=== PATIENT | female | born 1985 | race Caucasian/White ===

== ENCOUNTER 2021-05-28 18:46 | Inpatient (IN) | payer OTHER ==
[2021-05-28] MEDS ORDERED: guaiFENesin 200 MG/10 ML 10 ML UNIT-DOSE CUPS PO PRN (21:18)
[2021-05-28] MEDS ORDERED: hydrOXYzine PAMOATE 25 MG CAPSULE (FP) PO PRN (21:18)
[2021-05-28] MEDS ORDERED: MAGNESIUM CITRATE 300 ML BOTTLE PO PRN (21:18)
[2021-05-28] MEDS ORDERED: MAG HYDROX/AL HYDROX/SIMETH 30 ML UNIT-DOSE CUP PO PRN (21:18)
[2021-05-28] MEDS ORDERED: LOPERAMIDE HCL 2 MG CAPSULE PO PRN (21:18)
[2021-05-28] MEDS ORDERED: MAGNESIUM HYDROX 2400MG/30ML ORAL SUSPENSION 30 ML CUP PO PRN (21:18)
[2021-05-29 01:04] VITALS: BMI 50.1
[2021-05-29] MEDS ORDERED: TUBERCULIN PPD 5 TU/0.1ML VIAL ID ONE (01:56)
[2021-05-29] MEDS: MELATONIN 5 MG TABLETS PO SCH ×2 (02:35→21:37)
[2021-05-29] MEDS: THIAMINE HCL 100 MG TABLET (FP) PO SCH ×2 (02:35→21:37)
[2021-05-29 10:21] LABS: HEMATOCRIT 35.8 % (32.4-45.2); HEMOGLOBIN 11.7 GM/dL (10.7-15.3); MCH 27.1 pg (25.7-33.7); MCHC 32.7 g/dl (32.0-36.0); MEAN CELL VOLUME 82.9 fl (80-96); MEAN PLT VOLUME 8.5 fl (7.5-11.1); PLATELET COUNT 397 10^3/uL (134-434); RBC 4.31 M/mm3 (3.60-5.2); RDW 15.4 % (11.6-15.6); WHITE BLOOD COUNT 8.8 K/mm3 (4.0-10.0)
[2021-05-29 11:04] LABS: ALBUMIN 3.1 g/dl (3.4-5.0); BLOOD UREA NITROGEN 21.7 mg/dL (7-18); CALCIUM 8.5 mg/dL (8.5-10.1)
[2021-05-29 11:08] LABS: CREATININE 0.7 mg/dL (0.55-1.3)
[2021-05-29 11:09] LABS: BILIRUBIN,TOTAL 0.6 mg/dL (0.2-1); TOT PROT 6.9 g/dl (6.4-8.2)
[2021-05-29 11:30] LABS: SYPHILIS W/ RPR CONF NON-REACTIVE (NONREACTIVE)
[2021-05-29] MEDS: PRENATAL VITAMINS W/ FOLIC ACID TABLET (FP) PO SCH (11:30)
[2021-05-29] MEDS: ESCITALOPRAM OXALATE 10 MG TABLET PO SCH (12:39)
[2021-05-29 12:56] LABS: PH,URINE 5.5 (5.0-8.0); URINE APPEARANCE CLEAR; URINE BILIRUBIN NEGATIVE (NEGATIVE); URINE COLOR YELLOW; URINE GLUCOSE (UA) NEGATIVE (NEGATIVE); URINE KETONE NEGATIVE (NEGATIVE); URINE LEUK ESTERASE NEGATIVE (NEGATIVE); URINE NITRITE NEGATIVE (NEGATIVE); URINE PROTEIN NEGATIVE (NEGATIVE); URINE UROBILINOGEN 0.2 mg/dL (0.2-1.0)
[2021-05-29] MEDS: hydrOXYzine PAMOATE 25 MG CAPSULE (FP) PO PRN (21:38)
[2021-05-29] MEDS: QUEtiapine FUMARATE 50 MG TABLET PO SCH (21:38)
[2021-05-30] MEDS: hydrOXYzine PAMOATE 25 MG CAPSULE (FP) PO PRN ×2 (10:26→17:17)
[2021-05-30] MEDS: PRENATAL VITAMINS W/ FOLIC ACID TABLET (FP) PO SCH (10:26)
[2021-05-30] MEDS: ESCITALOPRAM OXALATE 10 MG TABLET PO SCH (10:26)
[2021-05-30] MEDS: THIAMINE HCL 100 MG TABLET (FP) PO SCH (21:45)
[2021-05-30] MEDS: QUEtiapine FUMARATE 50 MG TABLET PO SCH (21:45)
[2021-05-30] MEDS: MELATONIN 5 MG TABLETS PO SCH (21:45)
[2021-05-31] MEDS: hydrOXYzine PAMOATE 25 MG CAPSULE (FP) PO PRN ×2 (07:20→21:35)
[2021-05-31] MEDS: ACETAMINOPHEN 325 MG TABLET (FP) PO PRN (07:22)
[2021-05-31] MEDS: PRENATAL VITAMINS W/ FOLIC ACID TABLET (FP) PO SCH (09:51)
[2021-05-31] MEDS: IBUPROFEN 400 MG TABLET (FP) PO PRN (09:54)
[2021-05-31] MEDS: ESCITALOPRAM OXALATE 10 MG TABLET PO SCH (10:07)
[2021-05-31] MEDS: QUEtiapine FUMARATE 50 MG TABLET PO SCH (21:34)
[2021-05-31] MEDS: MELATONIN 5 MG TABLETS PO SCH (21:34)
[2021-05-31] MEDS: THIAMINE HCL 100 MG TABLET (FP) PO SCH (21:34)
[2021-06-01] MEDS: hydrOXYzine PAMOATE 25 MG CAPSULE (FP) PO PRN ×2 (10:14→17:15)
[2021-06-01] MEDS: PRENATAL VITAMINS W/ FOLIC ACID TABLET (FP) PO SCH (10:14)
[2021-06-01] MEDS: ESCITALOPRAM OXALATE 10 MG TABLET PO SCH (10:14)
[2021-06-01] MEDS: ACETAMINOPHEN 325 MG TABLET (FP) PO PRN (10:15)
[2021-06-01] MEDS: MELATONIN 5 MG TABLETS PO SCH (21:44)
[2021-06-01] MEDS: QUEtiapine FUMARATE 50 MG TABLET PO SCH (21:45)
[2021-06-01] MEDS: THIAMINE HCL 100 MG TABLET (FP) PO SCH (21:45)
[2021-06-01] MEDS: IBUPROFEN 400 MG TABLET (FP) PO PRN (21:46)
[2021-06-02] MEDS: ACETAMINOPHEN 325 MG TABLET (FP) PO PRN (06:59)
[2021-06-02] MEDS: hydrOXYzine PAMOATE 25 MG CAPSULE (FP) PO PRN (07:00)
[2021-06-02] MEDS: ESCITALOPRAM OXALATE 10 MG TABLET PO SCH (10:16)
[2021-06-02] MEDS: PRENATAL VITAMINS W/ FOLIC ACID TABLET (FP) PO SCH (10:17)
[2021-06-02] MEDS: IBUPROFEN 400 MG TABLET (FP) PO PRN (10:19)
[2021-06-02] MEDS ORDERED: QUEtiapine FUMARATE 50 MG TABLET PO SCH (16:24)
[2021-06-02] MEDS: hydrOXYzine PAMOATE 50 MG CAPSULE (FP) PO PRN ×2 (17:32→21:41)
[2021-06-02] MEDS: QUEtiapine FUMARATE 50 MG TABLET PO SCH (21:41)
[2021-06-02] MEDS: MELATONIN 5 MG TABLETS PO SCH (21:41)
[2021-06-02] MEDS: THIAMINE HCL 100 MG TABLET (FP) PO SCH (21:42)
[2021-06-03] MEDS: LIDOCAINE 5% TOPICAL PATCH TP SCH (10:22)
[2021-06-03] MEDS: ESCITALOPRAM OXALATE 10 MG TABLET PO SCH (10:23)
[2021-06-03] MEDS: hydrOXYzine PAMOATE 50 MG CAPSULE (FP) PO PRN ×3 (10:23→21:43)
[2021-06-03] MEDS: PRENATAL VITAMINS W/ FOLIC ACID TABLET (FP) PO SCH (10:23)
[2021-06-03] MEDS: IBUPROFEN 400 MG TABLET (FP) PO PRN (10:24)
[2021-06-03] MEDS: MELATONIN 5 MG TABLETS PO SCH (21:40)
[2021-06-03] MEDS: LIDOCAINE PATCH REMOVAL MC SCH (21:41)
[2021-06-03] MEDS: QUEtiapine FUMARATE 50 MG TABLET PO SCH (21:41)
[2021-06-03] MEDS: THIAMINE HCL 100 MG TABLET (FP) PO SCH (21:42)
[2021-06-04] MEDS: ESCITALOPRAM OXALATE 10 MG TABLET PO SCH (10:07)
[2021-06-04] MEDS: PRENATAL VITAMINS W/ FOLIC ACID TABLET (FP) PO SCH (10:07)
[2021-06-04] MEDS: hydrOXYzine PAMOATE 50 MG CAPSULE (FP) PO PRN ×2 (10:07→17:47)
[2021-06-04] MEDS: LIDOCAINE 5% TOPICAL PATCH TP SCH (10:07)
[2021-06-04] MEDS: IBUPROFEN 400 MG TABLET (FP) PO PRN (10:09)
[2021-06-04] MEDS: ACETAMINOPHEN 325 MG TABLET (FP) PO PRN (21:45)
[2021-06-04] MEDS: LIDOCAINE PATCH REMOVAL MC SCH (21:45)
[2021-06-04] MEDS: THIAMINE HCL 100 MG TABLET (FP) PO SCH (21:45)
[2021-06-04] MEDS: MELATONIN 5 MG TABLETS PO SCH (21:45)
[2021-06-04] MEDS: QUEtiapine FUMARATE 50 MG TABLET PO SCH (21:45)
[2021-06-05] MEDS: ESCITALOPRAM OXALATE 10 MG TABLET PO SCH (10:19)
[2021-06-05] MEDS: LIDOCAINE 5% TOPICAL PATCH TP SCH (10:20)
[2021-06-05] MEDS: PRENATAL VITAMINS W/ FOLIC ACID TABLET (FP) PO SCH (10:20)
[2021-06-05] MEDS ORDERED: hydrOXYzine PAMOATE 25 MG CAPSULE (FP) PO ONE ×2 (10:21→19:54)
[2021-06-05] MEDS: hydrOXYzine PAMOATE 50 MG CAPSULE (FP) PO PRN ×2 (10:21→21:33)
[2021-06-05] MEDS: ACETAMINOPHEN 325 MG TABLET (FP) PO PRN ×2 (10:22→21:34)
[2021-06-05] MEDS: IBUPROFEN 400 MG TABLET (FP) PO PRN (16:24)
[2021-06-05] MEDS: THIAMINE HCL 100 MG TABLET (FP) PO SCH (21:33)
[2021-06-05] MEDS: MELATONIN 5 MG TABLETS PO SCH (21:34)
[2021-06-05] MEDS: QUEtiapine FUMARATE 50 MG TABLET PO SCH (21:34)
[2021-06-05] MEDS: LIDOCAINE PATCH REMOVAL MC SCH (21:34)
[2021-06-06] MEDS: LIDOCAINE 5% TOPICAL PATCH TP SCH (09:57)
[2021-06-06] MEDS: PRENATAL VITAMINS W/ FOLIC ACID TABLET (FP) PO SCH (09:57)
[2021-06-06] MEDS: ESCITALOPRAM OXALATE 10 MG TABLET PO SCH (09:58)
[2021-06-06] MEDS: IBUPROFEN 400 MG TABLET (FP) PO PRN ×2 (10:00→17:13)
[2021-06-06] MEDS: hydrOXYzine PAMOATE 50 MG CAPSULE (FP) PO PRN ×2 (10:01→17:13)
[2021-06-06] MEDS ORDERED: JANSSEN COVID-19 VAC,AD26/PF 0.5 ML IM ONE (11:00)
[2021-06-06] MEDS: THIAMINE HCL 100 MG TABLET (FP) PO SCH (21:42)
[2021-06-06] MEDS: QUEtiapine FUMARATE 50 MG TABLET PO SCH (21:42)
[2021-06-06] MEDS: MELATONIN 5 MG TABLETS PO SCH (21:42)
[2021-06-06] MEDS: LIDOCAINE PATCH REMOVAL MC SCH (21:43)
[2021-06-07] MEDS: LIDOCAINE 5% TOPICAL PATCH TP SCH (09:59)
[2021-06-07] MEDS: PRENATAL VITAMINS W/ FOLIC ACID TABLET (FP) PO SCH (09:59)
[2021-06-07] MEDS: hydrOXYzine PAMOATE 50 MG CAPSULE (FP) PO PRN ×2 (09:59→21:33)
[2021-06-07] MEDS: ESCITALOPRAM OXALATE 10 MG TABLET PO SCH (09:59)
[2021-06-07] MEDS: IBUPROFEN 400 MG TABLET (FP) PO PRN ×2 (10:00→18:34)
[2021-06-07] MEDS: hydrOXYzine PAMOATE 25 MG CAPSULE (FP) PO PRN (18:35)
[2021-06-07] MEDS: QUEtiapine FUMARATE 50 MG TABLET PO SCH (21:32)
[2021-06-07] MEDS: MELATONIN 5 MG TABLETS PO SCH (21:32)
[2021-06-07] MEDS: THIAMINE HCL 100 MG TABLET (FP) PO SCH (21:32)
[2021-06-07] MEDS: LIDOCAINE PATCH REMOVAL MC SCH (21:33)
[2021-06-08] MEDS: LIDOCAINE 5% TOPICAL PATCH TP SCH (10:02)
[2021-06-08] MEDS: PRENATAL VITAMINS W/ FOLIC ACID TABLET (FP) PO SCH (10:02)
[2021-06-08] MEDS: hydrOXYzine PAMOATE 50 MG CAPSULE (FP) PO PRN ×2 (10:02→21:33)
[2021-06-08] MEDS: ESCITALOPRAM OXALATE 10 MG TABLET PO SCH (10:02)
[2021-06-08] MEDS: IBUPROFEN 400 MG TABLET (FP) PO PRN ×2 (10:03→19:16)
[2021-06-08] MEDS: QUEtiapine FUMARATE 50 MG TABLET PO SCH (21:33)
[2021-06-08] MEDS: MELATONIN 5 MG TABLETS PO SCH (21:33)
[2021-06-08] MEDS: THIAMINE HCL 100 MG TABLET (FP) PO SCH (21:33)
[2021-06-08] MEDS: LIDOCAINE PATCH REMOVAL MC SCH (22:02)
[2021-06-09] MEDS: ESCITALOPRAM OXALATE 10 MG TABLET PO SCH (10:10)
[2021-06-09] MEDS: IBUPROFEN 400 MG TABLET (FP) PO PRN (10:10)
[2021-06-09] MEDS: PRENATAL VITAMINS W/ FOLIC ACID TABLET (FP) PO SCH (10:10)
[2021-06-09] MEDS: hydrOXYzine PAMOATE 50 MG CAPSULE (FP) PO PRN ×2 (10:10→21:44)
[2021-06-09] MEDS: LIDOCAINE 5% TOPICAL PATCH TP SCH (10:11)
[2021-06-09] MEDS: MELATONIN 5 MG TABLETS PO SCH (21:42)
[2021-06-09] MEDS: LIDOCAINE PATCH REMOVAL MC SCH (21:42)
[2021-06-09] MEDS: THIAMINE HCL 100 MG TABLET (FP) PO SCH (21:46)
[2021-06-09] MEDS: QUEtiapine FUMARATE 50 MG TABLET PO SCH (21:46)
[2021-06-10] MEDS: PRENATAL VITAMINS W/ FOLIC ACID TABLET (FP) PO SCH (09:46)
[2021-06-10] MEDS: ESCITALOPRAM OXALATE 10 MG TABLET PO SCH (09:47)
[2021-06-10] MEDS: LIDOCAINE 5% TOPICAL PATCH TP SCH (09:48)
[2021-06-10] MEDS: hydrOXYzine PAMOATE 50 MG CAPSULE (FP) PO PRN ×2 (09:49→21:21)
[2021-06-10] MEDS: IBUPROFEN 400 MG TABLET (FP) PO PRN (09:49)
[2021-06-10] MEDS: MELATONIN 5 MG TABLETS PO SCH (21:20)
[2021-06-10] MEDS: THIAMINE HCL 100 MG TABLET (FP) PO SCH (21:20)
[2021-06-10] MEDS: QUEtiapine FUMARATE 50 MG TABLET PO SCH (21:20)
[2021-06-10] MEDS: ACETAMINOPHEN 325 MG TABLET (FP) PO PRN (21:21)
[2021-06-10] MEDS: LIDOCAINE PATCH REMOVAL MC SCH (21:22)
[2021-06-11] MEDS: PRENATAL VITAMINS W/ FOLIC ACID TABLET (FP) PO SCH (10:00)
[2021-06-11] MEDS: IBUPROFEN 400 MG TABLET (FP) PO PRN ×2 (10:00→21:36)
[2021-06-11] MEDS: ESCITALOPRAM OXALATE 10 MG TABLET PO SCH (10:00)
[2021-06-11] MEDS: hydrOXYzine PAMOATE 50 MG CAPSULE (FP) PO PRN ×2 (10:00→21:36)
[2021-06-11] MEDS: LIDOCAINE 5% TOPICAL PATCH TP SCH (10:01)
[2021-06-11] MEDS: QUEtiapine FUMARATE 50 MG TABLET PO SCH (21:36)
[2021-06-11] MEDS: THIAMINE HCL 100 MG TABLET (FP) PO SCH (21:36)
[2021-06-11] MEDS: LIDOCAINE PATCH REMOVAL MC SCH (21:50)
[2021-06-11] MEDS: MELATONIN 5 MG TABLETS PO SCH (21:51)
[2021-06-12] MEDS: PRENATAL VITAMINS W/ FOLIC ACID TABLET (FP) PO SCH (10:06)
[2021-06-12] MEDS: ESCITALOPRAM OXALATE 10 MG TABLET PO SCH (10:07)
[2021-06-12] MEDS: LIDOCAINE 5% TOPICAL PATCH TP SCH (10:07)
[2021-06-12] MEDS: hydrOXYzine PAMOATE 50 MG CAPSULE (FP) PO PRN ×2 (10:10→21:30)
[2021-06-12] MEDS: IBUPROFEN 400 MG TABLET (FP) PO PRN ×2 (10:10→21:30)
[2021-06-12] MEDS: LIDOCAINE PATCH REMOVAL MC SCH (21:29)
[2021-06-12] MEDS: QUEtiapine FUMARATE 50 MG TABLET PO SCH (21:30)
[2021-06-12] MEDS: THIAMINE HCL 100 MG TABLET (FP) PO SCH (21:30)
[2021-06-12] MEDS: MELATONIN 5 MG TABLETS PO SCH (21:31)
[2021-06-12] MEDS: P-EPHED 60MG/TRIPROLIDI 2.5MG TABLET PO PRN (21:32)
[2021-06-13] MEDS: PRENATAL VITAMINS W/ FOLIC ACID TABLET (FP) PO SCH (10:12)
[2021-06-13] MEDS: hydrOXYzine PAMOATE 50 MG CAPSULE (FP) PO PRN ×2 (10:12→21:45)
[2021-06-13] MEDS: ESCITALOPRAM OXALATE 10 MG TABLET PO SCH (10:12)
[2021-06-13] MEDS: LIDOCAINE 5% TOPICAL PATCH TP SCH (10:13)
[2021-06-13] MEDS: P-EPHED 60MG/TRIPROLIDI 2.5MG TABLET PO PRN ×2 (10:13→21:46)
[2021-06-13] MEDS: IBUPROFEN 400 MG TABLET (FP) PO PRN (10:15)
[2021-06-13] MEDS: QUEtiapine FUMARATE 50 MG TABLET PO SCH (21:43)
[2021-06-13] MEDS: THIAMINE HCL 100 MG TABLET (FP) PO SCH (21:44)
[2021-06-13] MEDS: MELATONIN 5 MG TABLETS PO SCH (21:44)
[2021-06-13] MEDS: LIDOCAINE PATCH REMOVAL MC SCH (21:44)
[2021-06-14 07:47] VITALS: BP 121/79; PULSE 87; TEMP 87
[2021-06-14] MEDS: LIDOCAINE 5% TOPICAL PATCH TP SCH (10:20)
[2021-06-14] MEDS: PRENATAL VITAMINS W/ FOLIC ACID TABLET (FP) PO SCH (10:20)
[2021-06-14] MEDS: ESCITALOPRAM OXALATE 10 MG TABLET PO SCH (10:21)
[2021-06-14] MEDS: hydrOXYzine PAMOATE 50 MG CAPSULE (FP) PO PRN (10:23)
[2021-06-14] MEDS: IBUPROFEN 400 MG TABLET (FP) PO PRN (10:24)
[2021-06-14] MEDS: P-EPHED 60MG/TRIPROLIDI 2.5MG TABLET PO PRN (10:25)
== END 2021-06-14 14:35 | disposition home or self-care (01) | DRG 772 ==
LOC: YASAS 18:46 → Y5N 23:32
PROVIDERS: ADMIT Allergy & Immunology; ATTEND Allergy & Immunology
PROC: HZ42ZZZ Group Counseling for Substance Abuse Treatment, Cognitive-Behavioral (ICD-10-PCS; principal; 2021-05-28)
DX: F10.20 Alcohol dependence, uncomplicated (principal); F14.20 Cocaine dependence, uncomplicated; F10.24 Alcohol dependence with alcohol-induced mood disorder; F19.24 Other psychoactive substance dependence with psychoactive substance-induced mood disorder; F39 Unspecified mood [affective] disorder; G47.30 Sleep apnea, unspecified; M54.9 Dorsalgia, unspecified; E66.01 Morbid (severe) obesity due to excess calories; Z68.43 Body mass index [BMI] 50.0-59.9, adult; Z62.810 Personal history of physical and sexual abuse in childhood; Z86.59 Personal history of other mental and behavioral disorders; Z87.891 Personal history of nicotine dependence
CPT/HCPCS: 0031A; 36415; 80053; 81003; 85027; 86780; 86803; 91303; 93005; 93010; C9803; U0003; U0005

== ENCOUNTER 2021-07-27 16:44 | Inpatient (IN) | payer OTHER ==
[2021-07-27 17:21] VITALS: BMI 52.9
[2021-07-27] MEDS ORDERED: MAGNESIUM HYDROX 2400MG/30ML ORAL SUSPENSION 30 ML CUP PO PRN (20:03)
[2021-07-27] MEDS ORDERED: BISMUTH SUBSALICYLATE 524 MG/30 ML PO PRN (20:03)
[2021-07-27] MEDS ORDERED: ACETAMINOPHEN 325 MG TABLET (FP) PO PRN ×2 (20:03)
[2021-07-27] MEDS ORDERED: MAG HYDROX/AL HYDROX/SIMETH 30 ML UNIT-DOSE CUP PO PRN (20:03)
[2021-07-27] MEDS ORDERED: MENTHOL/PHENOL 1 EACH UD MM PRN (20:03)
[2021-07-27] MEDS ORDERED: ONDANSETRON *ODT* 4 MG TABLET SL PRN (20:03)
[2021-07-27] MEDS ORDERED: MAGNESIUM CITRATE 300 ML BOTTLE PO PRN (20:03)
[2021-07-27] MEDS ORDERED: chlordiazePOXIDE HCL 25 MG CAPSULE PO PRN (20:08)
[2021-07-27] MEDS: THIAMINE HCL 100 MG TABLET (FP) PO SCH (22:09)
[2021-07-27] MEDS: chlordiazePOXIDE HCL 25 MG CAPSULE PO SCH (22:09)
[2021-07-27] MEDS: IBUPROFEN 400 MG TABLET (FP) PO PRN (22:09)
[2021-07-27] MEDS: METHOCARBAMOL 500 MG TABLET PO PRN (22:09)
[2021-07-27] MEDS: MELATONIN 5 MG TABLETS PO SCH (22:09)
[2021-07-28] MEDS: chlordiazePOXIDE HCL 25 MG CAPSULE PO SCH ×4 (06:53→22:28)
[2021-07-28] MEDS: IBUPROFEN 400 MG TABLET (FP) PO PRN ×2 (10:29→22:27)
[2021-07-28] MEDS: PRENATAL VITAMINS W/ FOLIC ACID TABLET (FP) PO SCH (10:30)
[2021-07-28] MEDS: METHOCARBAMOL 500 MG TABLET PO PRN (10:30)
[2021-07-28] MEDS: ESCITALOPRAM OXALATE 10 MG TABLET PO SCH (12:44)
[2021-07-28 13:10] LABS: HEMATOCRIT 35.5 % (32.4-45.2); HEMOGLOBIN 11.7 GM/dL (10.7-15.3); MCH 27.3 pg (25.7-33.7); MEAN CELL VOLUME 82.6 fl (80-96); PLATELET COUNT 377 10^3/uL (134-434); RDW 15.2 % (11.6-15.6)
[2021-07-28 13:18] LABS: CALCIUM 8.8 mg/dL (8.5-10.1)
[2021-07-28 13:19] LABS: BLOOD UREA NITROGEN 12.1 mg/dL (7-18)
[2021-07-28 13:21] LABS: CREATININE 0.8 mg/dL (0.55-1.3)
[2021-07-28 13:22] LABS: TOT PROT 7.1 g/dl (6.4-8.2)
[2021-07-28 13:23] LABS: BILIRUBIN,TOTAL 0.5 mg/dL (0.2-1)
[2021-07-28] MEDS: hydrOXYzine PAMOATE 50 MG CAPSULE (FP) PO PRN (14:31)
[2021-07-28] MEDS: QUEtiapine FUMARATE 50 MG TABLET PO SCH (22:26)
[2021-07-28] MEDS: THIAMINE HCL 100 MG TABLET (FP) PO SCH (22:26)
[2021-07-28] MEDS: MELATONIN 5 MG TABLETS PO SCH (22:26)
[2021-07-29] MEDS: chlordiazePOXIDE HCL 25 MG CAPSULE PO SCH ×4 (06:04→22:22)
[2021-07-29] MEDS: IBUPROFEN 400 MG TABLET (FP) PO PRN (10:56)
[2021-07-29] MEDS: PRENATAL VITAMINS W/ FOLIC ACID TABLET (FP) PO SCH (10:57)
[2021-07-29] MEDS: ESCITALOPRAM OXALATE 10 MG TABLET PO SCH (10:57)
[2021-07-29] MEDS: METHOCARBAMOL 500 MG TABLET PO PRN (18:06)
[2021-07-29] MEDS: QUEtiapine FUMARATE 50 MG TABLET PO SCH (22:21)
[2021-07-29] MEDS: MELATONIN 5 MG TABLETS PO SCH (22:21)
[2021-07-29] MEDS: METHYL SALICYLATE/MENTHOL OINT 30 GM TUBE TP SCH (22:21)
[2021-07-29] MEDS: THIAMINE HCL 100 MG TABLET (FP) PO SCH (22:21)
[2021-07-29] MEDS: hydrOXYzine PAMOATE 50 MG CAPSULE (FP) PO PRN (22:22)
[2021-07-30] MEDS ORDERED: chlordiazePOXIDE HCL 10 MG CAPSULE PO PRN
[2021-07-30] MEDS: chlordiazePOXIDE HCL 10 MG CAPSULE PO SCH ×4 (05:47→22:20)
[2021-07-30] MEDS: METHOCARBAMOL 500 MG TABLET PO PRN (05:48)
[2021-07-30] MEDS: PRENATAL VITAMINS W/ FOLIC ACID TABLET (FP) PO SCH (10:28)
[2021-07-30] MEDS: ESCITALOPRAM OXALATE 10 MG TABLET PO SCH (10:29)
[2021-07-30] MEDS: METHYL SALICYLATE/MENTHOL OINT 30 GM TUBE TP SCH ×2 (10:32→22:22)
[2021-07-30] MEDS: hydrOXYzine PAMOATE 50 MG CAPSULE (FP) PO PRN (17:47)
[2021-07-30] MEDS: IBUPROFEN 400 MG TABLET (FP) PO PRN (17:47)
[2021-07-30] MEDS: QUEtiapine FUMARATE 50 MG TABLET PO SCH (22:20)
[2021-07-30] MEDS: THIAMINE HCL 100 MG TABLET (FP) PO SCH (22:20)
[2021-07-30] MEDS: MELATONIN 5 MG TABLETS PO SCH (22:20)
[2021-07-31] MEDS: chlordiazePOXIDE HCL 10 MG CAPSULE PO SCH ×2 (06:29→17:49)
[2021-07-31] MEDS: METHYL SALICYLATE/MENTHOL OINT 30 GM TUBE TP SCH ×2 (10:22→23:16)
[2021-07-31] MEDS: ESCITALOPRAM OXALATE 10 MG TABLET PO SCH (10:23)
[2021-07-31] MEDS: PRENATAL VITAMINS W/ FOLIC ACID TABLET (FP) PO SCH (10:23)
[2021-07-31] MEDS: hydrOXYzine PAMOATE 50 MG CAPSULE (FP) PO PRN ×2 (10:23→17:51)
[2021-07-31] MEDS: IBUPROFEN 400 MG TABLET (FP) PO PRN (10:24)
[2021-07-31] MEDS: METHOCARBAMOL 500 MG TABLET PO PRN (17:51)
[2021-07-31] MEDS: MELATONIN 5 MG TABLETS PO SCH (23:16)
[2021-07-31] MEDS: QUEtiapine FUMARATE 50 MG TABLET PO SCH (23:16)
[2021-07-31] MEDS: THIAMINE HCL 100 MG TABLET (FP) PO SCH (23:17)
[2021-08-01] MEDS ORDERED: chlordiazePOXIDE HCL 10 MG CAPSULE PO ONE (05:00)
[2021-08-01 09:18] VITALS: BP 124/82; PULSE 112; TEMP 96.7
[2021-08-01] MEDS: PRENATAL VITAMINS W/ FOLIC ACID TABLET (FP) PO SCH (09:31)
[2021-08-01] MEDS: METHYL SALICYLATE/MENTHOL OINT 30 GM TUBE TP SCH (09:32)
[2021-08-01] MEDS: ESCITALOPRAM OXALATE 10 MG TABLET PO SCH (09:33)
== END 2021-08-01 09:37 | disposition home or self-care (01) | DRG 774 ==
LOC: YASAS 16:44 → Y3N 20:53
PROVIDERS: ADMIT Allergy & Immunology; ATTEND Allergy & Immunology
PROC: HZ2ZZZZ Detoxification Services for Substance Abuse Treatment (ICD-10-PCS; principal; 2021-07-27)
DX: F10.230 Alcohol dependence with withdrawal, uncomplicated (principal); F14.20 Cocaine dependence, uncomplicated; F19.24 Other psychoactive substance dependence with psychoactive substance-induced mood disorder; F19.282 Other psychoactive substance dependence with psychoactive substance-induced sleep disorder; F19.280 Other psychoactive substance dependence with psychoactive substance-induced anxiety disorder; F43.10 Post-traumatic stress disorder, unspecified; F39 Unspecified mood [affective] disorder; M17.11 Unilateral primary osteoarthritis, right knee; R00.0 Tachycardia, unspecified; G47.00 Insomnia, unspecified; E66.9 Obesity, unspecified; Z68.43 Body mass index [BMI] 50.0-59.9, adult; Z87.891 Personal history of nicotine dependence; Z62.810 Personal history of physical and sexual abuse in childhood; Z56.0 Unemployment, unspecified
CPT/HCPCS: 36415; 80053; 81025; 85027; 86780; 93005; 93010; C9803; U0003; U0005